=== PATIENT | female | born 1995 ===

== ENCOUNTER 2020-01-31 09:04 | Emergency (ER) | payer OTHER ==
[~2020-01-31] VITALS: Ht 165.1 cm; Wt 56.2 kg
== END 2020-01-31 09:52 | disposition home or self-care (01) ==
LOC: ER 09:04
DX: L23.9 Allergic contact dermatitis, unspecified cause (principal)

== ENCOUNTER 2020-12-07 09:22 | Emergency (ER) | payer OTHER ==
[~2020-12-07] VITALS: Ht 162.6 cm; Wt 59.9 kg
[2020-12-07] MEDS ORDERED: CIPRO500 MG PO (10:16)
== END 2020-12-07 10:36 | disposition home or self-care (01) ==
LOC: ER 09:22
DX: S60.572A Other superficial bite of hand of left hand, initial encounter (principal); W55.01XA Bitten by cat, initial encounter; Y93.89 Activity, other specified; Y92.89 Other specified places as the place of occurrence of the external cause; Y99.8 Other external cause status

== ENCOUNTER 2022-06-04 21:26 | Emergency (ER) | payer OTHER ==
[~2022-06-04] VITALS: Ht 165.1 cm; Wt 54.9 kg
[~2022-06-04 21:26] MED LIST: CIPRO500 MG PO
[2022-06-04] MEDS ORDERED: TYLENOL (22:40)
[2022-06-05] MEDS ORDERED: ACETAMINOPHEN650 M2 PO (02:50)
[2022-06-05] MEDS ORDERED: MOLNUPIRAVIR (200 MG PO (02:50)
[2022-06-05] MEDS ORDERED: MUCINEX DM ER1 EACH PO (02:50)
[2022-06-05] MEDS ORDERED: LEVALBUTER0.63 MG/3 IH (02:50)
== END 2022-06-05 03:06 | disposition home or self-care (01) ==
LOC: ER 21:26
DX: U07.1 COVID-19 (principal)